=== PATIENT | male | born 1940 | race Caucasian/White ===

== ENCOUNTER 2022-02-24 12:47 | Emergency (ER) | payer MEDICARE, OTHER, SELFPAY ==
[2022-02-24] VITALS (24 sets, daily range): BP systolic 123–170; BP diastolic 75–99; PULSE 82–102; RESP 14–23; TEMP 36.8–36.9; O2SAT 91–100
--- NOTE | ~2022-02-24 | XR_ITS ---
XR chest 1V portable 02/24/2022 14:22 Indication: Shortness of breath. Cough. Sore throat. Procedure: AP portable chest Comparison: No prior studies for comparison. Findings: Patchy bilateral airspace disease. Heart size normal. Small left pleural effusion. No pneum othorax. No acute osseous abnormality. Generalized osteopenia. Impression: 1: Patchy bilateral airspace disease, compatible with pneumonia. Reviewed, dictated and finalized at location B. 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
--- NOTE | 2022-02-24 13:44 | PC.NURSE ---
PT STATES HE THINKS HE IS SUPPOSED TO GO TO [facility] IN [place] FOR CHEMO AND RADIATION, HOWEVER IS UNSURE WHERE THE CANCER IS, HE BELIEVES IT MAY BE HIS PROSTATE. PT HAS LOOSE COUGH NOTED, WILL NOT CLEAR HIS THROAT OF IT. VSS PER MONITOR. WILL CONTINUE TO MONITOR.
--- NOTE | 2022-02-24 13:55 | ED.URI ---
HPI - URI/Sore Throat General Chief Complaint: Upper Respiratory Infection Stated Complaint: sore throat/hard time breathing Time Seen by Provider: 02/24/22 13:54 Source: patient Mode of arrival: ambulatory Limitations: no limitations History of Present Illness HPI Narrative: 82 years old male, , smoker, prostrate cancer, COPD presents to the ER with a 2 day history of -- sore throat with odynophagia -- shortness of breath with dyspneaon exertion -- cough with mucoid sputum no fever. No chest pain. MD elicited complaint: cough and sore throat Pertinent past history: COPD Onset (ago): day(s) ( started 2 days ago.) Consistency: constant Description of mucous: clear Able to tolerate fluids by mouth: No Exacerbating factors: swallowing Associated symptoms: denies other symptoms, nasal congestion, cough and shortness of breath Treatments prior to arrival: none Related Data Allergies Allergy/AdvReac Type Severity Reaction Status Date / Time No Known Allergies Allergy Verified 02/24/22 13:14 Review of Systems Review of Systems: All systems reviewed & are unremarkable except as noted in HPI and below Constitutional: Constitutional: Reports as per HPI and Reports no additional constitutional complaints Eyes: Eyes: Reports as per HPI and Reports no additional eye complaints ENT: Reports system reviewed and no additional complaints, except as documented and Reports as per HPI Cardiovascular: Cardiovascular: Reports as per HPI and Reports no additional cardiovascular complaints Respiratory: Respiratory: Reports as per HPI, Reports no additional respiratory complaints, Reports cough and Reports dyspnea Gastrointestinal: Gastrointestinal: Reports as per HPI and Reports no additional gastrointestinal complaints Genitourinary: Genitourinary: Reports no additional male genitourinary complaints and Reports as per HPI Musculoskeletal: Musculoskeletal: Reports no additional musculoskeletal complaints and Reports as per HPI Integumentary/Breasts: Skin/Breast: Reports system reviewed and no additional complaints, except as docu and Reports as per HPI Neurologic: Reports system reviewed and no additional complaints, except as documented and Reports as per HPI Psychiatric: Psychiatric: Reports no additional psychiatric complaints and Reports as per HPI Endocrine: Endocrine: Reports no additional endocrine complaints and Reports as per HPI Hematologic/Lymphatic: Hematologic/Lymphatic: Reports no additional hematologic/lymphatic complaints and Reports as per HPI Allergic/Immunologic: Allergic/Immunologic: Reports no additional allergic/immunologic complaints and Reports as per HPI [facility] Past Medical History Medical History (Updated 02/24/22 @ 15:45 by Pravin Gamez MD) Prostate cancer Exam Const: General: ill appearing Orientation/consciousness: patient oriented x3 Limitations: no limitations HENMT: Head: normal to inspection Ears: external ears normal Face/Nose/Sinus: Normal external nose present Face and sinus: normal facial exam Throat: posterior oropharynx normal ( pharyngeal erythema. Uvula enlarged and inflamed) Eyes: Conjunctivae: conjunctivae normal and conjunctival abnormality Pupils: Equal, round and reactive pupils present EOM: EOMs intact bilaterally Direct Ophthalmoscopy: no photophobia Neck: Neck: normal visual inspection, no lymphadenopathy and no meningeal signs Chest: Chest palpation & inspection: normal inspection of the chest and abnormal inspection of the chest Resp: Auscultation: diminished lung sounds Cardio: Rate: regular rate Rhythm: regular rhythm GI: GI Palp: Yes Soft to palpation Auscultation: normal bowel sounds Back/Spine/Pelvis: Back: no CVA tenderness Skin: General skin exam: normal color Rashes: no rashes Wounds: no wounds Neuro: General: patient oriented x3, moves all extremities, no meningeal signs, no focal motor deficits and CN's II-XI intact bilaterally E
--- NOTE | 2022-02-24 14:04 | ECG_ITS ---
Measurements Intervals [place] Rate: 85 P: 81 SD: 143 QRS: 57 QRSD: 87 T: 62 QT: 342 QTc: 407 Interpretive Statements SINUS RHYTHM NORMAL ECG NO PREVIOUS ECG AVAILABLE FOR COMPARISON Electronically Signed On 02-24-2022 15:37:37 MEDICAL SONOGRAPHER by Roberto Hawk D.O.
[2022-02-24 14:30] LABS: Hematocrit 38.6 % (37.0-46.0); Hemoglobin 12.6 g/dL (12.4-15.3); Mean Corpuscular HGB Conc 32.6 g/dL (32.0-36.0); Mean Corpuscular Hemoglobin 31.2 pg (27.0-31.0); Mean Corpuscular Volume 95.5 fL (78.0-102.0); Platelet Count Result 338 K/mm3 (150-420); Red Blood Count 4.04 M/mm3 (4.70-6.10); White Blood Count 14.4 K/mm3 (4.8-10.8)
--- NOTE | 2022-02-24 14:34 | PC.NURSE ---
PT WAS UP TO RR WITHOUT DIFFICULTY, SAMPLE OBTAINED AND SENT TO LAB. PT IS AWAITING LAB RESULTS AT THIS TIME, ASKING WHEN HE CAN LEAVE. LOOSE COUGH STILL NOTED. VSS PER MONITOR. NAD NOTED. WILL CONTINUE TO MONITOR.
[2022-02-24 14:49] LABS: Band Neutrophils Percent 0 % (0-6); Lymphocytes Absolute Manual 1.15 K/mm3 (1.1-4.5); Lymphocytes Percent Manual 8 % (18-44); Monocytes Absolute Manual 1.29 K/mm3 (0.1-0.90); Monocytes Percent Manual 9 % (3-9); Neutrophils Absolute Manual 11.95 K/mm3 (1.3-6.7); Neutrophils Percent Manual 83 % (46-73); Platelet Estimate Adequate (Adequate); Total Cells Counted 100
[2022-02-24 14:50] LABS: Alanine Aminotransferase 7 U/L (16-63); Albumin Level 2.8 g/dL (3.4-5.0); Alkaline Phosphatase 109 U/L (46-116); Anion Gap 8 mmol/L (8-16); Aspartate Amino Transferase 13 U/L (15-37); Bilirubin,Total 0.4 mg/dL (0.00-1.00); Blood Urea Nitrogen 8 mg/dL (7-18); Calcium 8.6 mg/dL (8.5-10.1); Carbon Dioxide 29 mmol/L (21-32); Chloride 101 mmol/L (98-108); Estimated CRCL calculation 53 ml/min; Estimated Glomerular Filt Rate > 60; Glucose 99 mg/dL (70-99); Lactic Acid Reflex 0.9 mmol/L (0.4-2.0); Osmolality Calculated 284 mOsm/kg (285-295); Potassium 4.3 mmol/L (3.5-5.1); Sodium 138 mmol/L (136-145); Total Protein 7.8 g/dL (6.4-8.2); Troponin I 9.3 ng/L (0.00-60.4)
[2022-02-24 14:57] LABS: Strep Group A RT-PCR Not Detected (Negative)
[2022-02-24 15:10] LABS: NT Pro B Type Natriuretic Pept 156 pg/mL (0-450)
[2022-02-24 15:10] LABS: SARS-CoV-2 RNA PCR Negative (Negative)
--- NOTE | 2022-02-24 15:13 | PC.NURSE ---
PT UP TO RR AGAIN, [facility] CALLED TO MAKE APPOINTMENT FOR TUESDAY TO START ONCOLOGY WORK UP. INFORMATION WRITTEN DOWN AND DOCUMENTED FOR PT. NAD NOTED. WILL CONTINUE TO MONITOR.
[2022-02-24 15:14] LABS: Influenza Control Valid (Valid)
[2022-02-24] MEDS: IPRATROPIUM 0.5 MG/ALBUTEROL SULFATE 2.5 MG AMPUL.NEB 3 ML INHALATION (15:45)
[2022-02-24] MEDS: levoFLOXacin TAB 500 MG, levoFLOXacin TAB 250 MG 750 MG PO (16:02)
--- NOTE | 2022-02-24 16:11 | PC.NURSE ---
PT REFUSED ADMISSION OR TRANSFER, EXPLAINED RISKS UP TO AND INCLUDING TO PT AND HE REFUSED TO STAY. AMA FORM SIGNED. FRIEND IS AWARE THAT PT NEEDS TO [employer] [facility] FROM [facility] IN [place] ON HIS WAY HOME. FRIEND EN ROUTE TO TRANSPORT PT TO PHARMACY AND THEN HOME. ADVISED PT TO CALL 911 OR RETURN IF SX WORSEN.
== END 2022-02-24 16:10 | disposition left against medical advice (07) ==
PROVIDERS: Emergency Provider Internal Medicine Critical Care Medicine
DX: J18.9 Pneumonia, unspecified organism (principal); J02.9 Acute pharyngitis, unspecified; J42 Unspecified chronic bronchitis; Z20.822 Contact with and (suspected) exposure to COVID-19; R06.00 Dyspnea, unspecified; Z85.46 Personal history of malignant neoplasm of prostate
CPT/HCPCS: 36415; 71045; 80053; 83605; 83880; 84484; 85025; 87651; 87804; 93005; 94640; 99284; A9270; U0003; U0005

== ENCOUNTER 2022-06-09 00:32 | Emergency (ER) | payer MEDICARE, MEDICAID, SELFPAY ==
[2022-06-09 00:35] VITALS: BP 119/65; PULSE 101; RESP 20; TEMP 36.6; O2SAT 95
--- NOTE | 2022-06-09 00:50 | ED.FALL ---
HPI - Fall General Chief Complaint: Fall Stated Complaint: Fall Time Seen by Provider: 06/09/22 00:40 History of Present Illness HPI Narrative: This is an 82-year-old male with past medical history of lung cancer, who is brought in by EMS after a fall at home. Patient states he was walking with his walker when he lost his footing and fell to the ground. He denies head injury or loss of consciousness. He denies chest pain, palpitations, shortness of breath, weakness or numbness before or after the fall. He has no other complaints today. EMS reports at the scene, the patient was oriented only to self. After some assistance he was able to ambulate without difficulty to their stretcher. Vital signs were otherwise reported as within normal limits. Related Data Allergies Allergy/AdvReac Type Severity Reaction Status Date / Time No Known Allergies Allergy Verified 02/24/22 13:14 Review of Systems Review of Systems: CONSTITUTIONAL: Denies fever, chills, or sweats. EYES: Denies visual changes, redness, or discharge. ENT: Denies rhinorrhea, congestion, sore throat, or otalgia. CARDIOVASCULAR: Denies chest pain, palpitations, or edema. RESPIRATORY: Denies cough or dyspnea. GASTROINTESTINAL: Denies abdominal pain, nausea, vomiting, or diarrhea. GENITOURINARY: Denies dysuria or hematuria. SKIN: Denies rash or itching. MUSCULOSKELETAL: Denies back pain, joint pain, or myalgia. NEUROLOGIC: Denies headache, numbness, dizziness, or weakness. PSYCHIATRIC: Denies anxiety or depression. [facility] Past Medical History Medical History (Updated 06/09/22 @ 01:10 by Forrest Dong MD) Lung cancer Prostate cancer Social History Social History (Updated 06/09/22 @ 00:54 by Forrest Dong MD) Smoking status: Current every day smoker Alcohol intake: never Drinks per week: 1 Substance use: never Living arrangements: with family Additional living arrangements comments: Reportedly lives with 2 mentally handicapped daughters Exam Narrative: GENERAL: Well-developed, well-nourished, and in no acute distress. HEAD: Normocephalic, atraumatic. EYES: PERRLA and EOMI. ENT: Nares clear, no rhinorrhea or epistaxis. Mucous membranes moist. Oropharynx without tonsillar hypertrophy exudate or other lesions. NECK: Supple. No adenopathy or masses. No carotid bruits or JVD. No midline spine tenderness to palpation, no step-off or crepitus CHEST: Clear to auscultation. No respiratory distress. No wheezes rales or rhonchi HEART: Regular rate and rhythm. No murmur heard. Normal peripheral pulses. ABDOMEN: Soft, nontender, nondistended, normal active bowel sounds. BACK: No midline spine tenderness to palpation, no step-off or crepitus EXTREMITIES: There is a healing skin tear over the right lateral elbow underneath a bandage. Normal range of motion. No edema. SKIN: Warm, dry, no rash. NEURO: No focal deficits. Alert and oriented x3. Strength 5/5 in all extremities. Sensation intact bilaterally. Patient ambulates with a walker without difficulty PSYCH: Normal mood and affect. Course Course Emergency Course: 00:55 - On my examination, the patient is alert and oriented to self, place, time and situation. He is consistent in his retelling of his fall. He does not have any obvious physical injuries. His vital signs are within normal limits and his exam is not concerning for other obvious illness. He is able to ambulate in the emergency with a walker, without significant difficulty. 01:00 - Nursing staff contacted his power of tax attorney (niece), regarding transportation home and recommendation to consider future placement in an assisted living facility. 01:20 - The patient's niece contacted this ED, the patient's brother will come to pick him up. Discussed return and emergency precautions including signs/symptoms of ACS and respiratory distress. The patient voiced understanding and is comfortable with the plan. All questions answered to his sati
--- NOTE | 2022-06-09 01:00 | PC.NURSE ---
After examination and evaluation, pt is currently A&O x3 and able to answer and understand all questions by ERP. Pt is able to stand per self and get out of bed by himself and uses walker to ambulate steadily down hallway s incident.
--- NOTE | 2022-06-09 01:07 | PC.NURSE ---
Call placed to pts ARAVIND, Jossy. Update on pt condition given and findings all negative, along c POC for d/c home instructions given via phone to POA. Pts POA will have another family member come to seed cone picker pt to take home.
[2022-06-09 01:11] VITALS: BP 123/65; PULSE 104; RESP 20; TEMP 36.6; O2SAT 96
== END 2022-06-09 01:31 | disposition home or self-care (01) ==
PROVIDERS: Emergency Provider Preventive Medicine Aerospace Medicine
DX: Z04.3 Encounter for examination and observation following other accident (principal); F17.200 Nicotine dependence, unspecified, uncomplicated; Z85.118 Personal history of other malignant neoplasm of bronchus and lung; W18.30XA Fall on same level, unspecified, initial encounter
CPT/HCPCS: 99282

== ENCOUNTER 2022-06-11 04:49 | Emergency (ER) | payer MEDICARE, MEDICAID, SELFPAY ==
--- NOTE | ~2022-06-11 | CT_ITS ---
CT head without contrast Indication: Head injury Technique: Serial scans were obtained through the brain without the administration of contrast. Dose reduction technique was used on this scan by utilizing automated exposure control and iterative recon struction technique. The dose-length product (DLP) was 681.00 mGy-cm. Findings: There is no evidence of intracranial hemorrhage, mass lesion, or acute infarct. The ventri cles and subarachnoid spaces are dilated, consistent with mild to moderate atrophy. Possible element of superimposed normal pressure hydrocephalus. Low attenuation regions are seen within the periventri cular white matter bilaterally, likely representing changes from chronic microvascular ischemic disea se. There is no evidence of edema, mass effect or midline shift. The visualized paranasal sinuses a nd mastoid air cells are clear. Impression: No intracranial hemorrhage, mass, or acute infarct. Atrophy and chronic white matter changes, as above. Questionable superimposed element of normal press ure hydrocephalus. Reviewed, dictated and finalized at location . [employer]ING MACHINE OPERATOR [employer] Impression: No intracranial hemorrhage, mass, or acute infarct. Atrophy and chronic white matter changes, as above. Questionable superimposed e lement of normal pressure hydrocephalus.
[2022-06-11 04:59] VITALS: BP 116/76; PULSE 95; RESP 18; TEMP 36.5; O2SAT 98
--- NOTE | 2022-06-11 05:40 | ED.FALL ---
HPI - Fall General Chief Complaint: Fall Stated Complaint: Fall Source: patient Mode of arrival: ambulatory Limitations: no limitations History of Present Illness HPI Narrative: this is a 82-year-old gentleman that has avulsion injury to the top his scalp after he fell out of bed earlier this morning with no loss of consciousness no headache no nausea vomiting no blurry vision, no neurological deficits. complaint: fall Onset (ago): hour(s) Fall from: out of bed Place fall occurred: home Related Data Home Medications Medication Instructions Recorded Confirmed No Home Medications 06/11/22 06/11/22 Allergies Allergy/AdvReac Type Severity Reaction Status Date / Time No Known Allergies Allergy Verified 06/11/22 04:56 Review of Systems Review of Systems: All systems reviewed & are unremarkable except as noted in HPI and below PMFSH Past Medical History Medical History Lung cancer Prostate cancer Social History Social History Smoking status: Current every day smoker Alcohol intake: never Drinks per week: 1 Substance use: never Living arrangements: with family Additional living arrangements comments: Reportedly lives with 2 mentally handicapped daughters Exam Const: General: healthy appearing and no acute distress Nutritional Appearance: well nourished Orientation/consciousness: patient oriented x3 Limitations: no limitations HENMT: Face and sinus: normal facial exam Mouth: Yes Normal oral and palatal mucosa present Eyes: Pupils: Equal, round and reactive pupils present EOM: EOMs intact bilaterally Neck: Neck: normal visual inspection, no lymphadenopathy and no meningeal signs Chest: Chest palpation & inspection: normal inspection of the chest Resp: Effort & Inspection: normal respiratory effort Cardio: Rate: regular rate Rhythm: regular rhythm GI: Auscultation: normal bowel sounds : General: Yes bladder normal to palpation Skin: General skin exam: normal color Wounds: wounds noted Other: Avulsion injury to the top of his scalp Neuro: General: patient oriented x3 Cranial nerves: Yes Nystagmus not present Speech: normal speech Gait exam (Neuro): Normal gait present Extrem: General: normal to inspection Psych: Mental Status: mental status grossly normal Affect: normal affect Course Course Emergency Course: patient updated with his tetanus, triple antibiotic ointment placed on avulsion injury had a CT scan of the brain that showed no acute intracranial and abnormalities. Vital Signs Vital signs: Vital Signs Temperature 36.5 C 06/11/22 04:59 Pulse Rate 95 06/11/22 04:59 Respiratory Rate 18 06/11/22 04:59 Blood Pressure 116/76 06/11/22 04:59 Pulse Oximetry 98 06/11/22 04:59 Oxygen Delivery Room Air 06/11/22 04:59 Temperature 36.5 C 06/11/22 04:59 Pulse Rate 95 06/11/22 04:59 Respiratory Rate 18 06/11/22 04:59 Blood Pressure 116/76 06/11/22 04:59 Pulse Oximetry 98 06/11/22 04:59 Oxygen Delivery Room Air 06/11/22 04:59 Critical Care Time Critical Care Time Critical Care Time: No Discharge Plan Discharge Clinical Impression: Avulsion, skin Patient Disposition: Home, Self-Care Condition: Stable Instructions: Antibiotic Form, Head Injury (ED), Skin Avulsion (ED) Additional Instructions: advised to follow-up primary care physician if symptoms persist or worsen. Prescriptions: No Action No Home Medications Follow-up/Referrals: UNKNOWN,DOCTOR [Primary Care Provider] - Time of Disposition: 05:43
[2022-06-11] MEDS: TETANUS,DIPHTHERIA,AC PERTUSSIS ADULT 0.5 ML (ADACEL) IM (05:52)
[2022-06-11] MEDS: NEOMYCIN/POLYMYXIN/BACITRACIN OINTMENT PACKET 1 PACKET TOPICAL (05:54)
[2022-06-11 05:59] VITALS: BP 128/91; PULSE 98; RESP 14; O2SAT 98
== END 2022-06-11 06:15 | disposition home or self-care (01) ==
PROVIDERS: Emergency Provider Emergency Medicine
DX: S08.0XXA Avulsion of scalp, initial encounter (principal); Z85.46 Personal history of malignant neoplasm of prostate; Z85.118 Personal history of other malignant neoplasm of bronchus and lung; Z23 Encounter for immunization; F17.200 Nicotine dependence, unspecified, uncomplicated; W06.XXXA Fall from bed, initial encounter
CPT/HCPCS: 70450; 90471; 90715; 99284